=== PATIENT | female | born 1990 | race Caucasian/White ===

== ENCOUNTER 2018-03-06 08:26 | Inpatient (IN) ==
[2018-03-06] MEDS ORDERED: Naloxone 0.4 MG/ML INJ IVP PRN (08:41)
[2018-03-06] MEDS ORDERED: Famotidine 20 MG/2 ML VIAL IVP PRN (08:41)
[2018-03-06] MEDS ORDERED: EPHEDrine 50 MG/ML VIAL IVP PRN (08:44)
[2018-03-06] MEDS ORDERED: Epidural Premix (fent/bupiv) 110 ML EP SCH (08:45)
[2018-03-06 09:41] LABS: Basophils % 0.2 %; Eosinophils # 0.1 K/mcL (0.0-0.6); Eosinophils % 0.5 %; Hematocrit 31.9 % (35.3-44.9); Hemoglobin 10.8 g/dL (11.5-15.4); Immature Granulocytes % 0.7 % (0-4); Lymphocytes # 2.5 K/mcL (0.6-4.6); Lymphocytes % 18.6 %; Mean Corpuscular HGB Conc 33.9 g/dL (31.6-35.5); Mean Corpuscular Hemoglobin 27.8 pg (28.0-33.3); Mean Corpuscular Volume 82.2 fL (83.0-100.0); Monocytes # 0.7 K/mcL (0.0-1.3); Monocytes % 5.6 %; Neutrophils # 9.9 K/mcL (1.6-8.9); Platelet Count 340 K/mcL (140-400); Red Blood Count 3.88 M/mcL (3.82-4.97); Red Cell Distribution Width 13.9 % (11.5-14.5); Segmented Neutrophils % 74.4 %
[2018-03-06 09:55] LABS: Amphetamine Screen,Urine Negative ng/mL (Cutoff=1000); Barbiturate Screen,Urine Negative ng/mL (Cutoff=200); Benzodiazepines Screen,Urine Negative ng/mL (Cutoff=200); Cannabinoid Screen,Urine Negative ng/mL (Cutoff = 50); Cocaine Screen,Urine Negative ng/mL (Cutoff= 300); Opiate Screen,Urine Negative ng/mL (Cutoff=300); Phencyclidine Screen,Urine Negative ng/mL (Cutoff=25)
[2018-03-06] MEDS: Ringers Solution, Lactated 1,000 ML IVC SCH ×2 (10:11→18:05)
[2018-03-06] MEDS ORDERED: miSOPROStol 25 MCG TABLET PO PRN (10:43)
--- NOTE | 2018-03-06 11:20 | OB/GYN History & Physical ---
Date of Encounter: 03/06/18 Time of Encounter: 10:57 Assessment and Plan (1) 40 weeks gestation of Current visit: Yes Status: Acute (2) Intrauterine Current visit: Yes Status: Acute Admit to labor and delivery for induction of labor 50 g Cytotec by mouth Labs-CBC and clot to hold Pain management plan is likely epidural Continuous electronic monitoring Anticipate vaginal delivery Dr. Calvillo is OB semiconductor bonder and is available as needed (3) Intact amniotic membranes Current visit: Yes Status: Acute Qualifiers: Trimester: third trimester Qualified Code(s): Z34.93 - Encounter for supervision of normal , unspecified, third trimester History of Present Illness Chief complaint: low VANIA HPI: Ms. Martins is a 27 year old female at 40 weeks 0 days gestation with an estimated date of of 03/06/18 dated by LMP. She presents for induction from the office today status post BPP reading 6/8 and VANIA of 4 with maximum pocket of 2.2 cm. She endorses good movement and denies leakage of fluid, vaginal bleeding, contractions. She has been seen by the midwives throughout her . This has been uncomplicated. records are available electronically and have been reviewed. Labs: O+ GBS negative Hep B negative HIV negative T. Palladium negative GC/CL negative Rubella immune Varicella immune Past Med Surg Social Fam HX - Past Medical History Medical history: no medical history Psychiatric history: no psych history - Past Surgical History Surgical History: appendectomy Additional surgical history: wisdom teeth. d&e - Social History Smoking Status: Never smoker Alcohol use: none Drug use: none - Family History Mother Adopted: No Living Status: Still Living Hx Family Cardiac Disorders: Yes (htn) Hx Family Cancer: Yes Hx Family Endocrine Disorder: Yes (hypothyroid) Obstetrical History - Pregnancies : 2 Para: 0 Term: 0 : 0 Ab's: 1 Livin Medications and Allergies Vit Calc,Iron,Folic [ Vitamins] 1 tab PO DAILY 03/06/18 [ History] 3 Allergy/AdvReac Type Severity Reaction Status Date / Time No Known Allergies Allergy Verified 03/06/18 09:05 Review of System OB All systems PM: reviewed and no additional remarkable complaints except as stated Exam - Constitutional Constitutional: well developed, well nourished, no acute distress, average body habitus, obese - HEENT HEENT: PERRL, Normocephaly, Mucus Membranes Moist - Neck Neck exam: full ROM - Lungs Respiratory exam: CTAB - Cardiovascular Cardiovascular exam: RRR, +S1, +S2 - Breasts Breast: bilateral: normal - Abdomen Abdomen: Present: bowel sounds normal, gravid, non tender - Extremities Extremities exam: normal capillary refill, normal inspection, pedal edema, radial pulses palpable and symmetrical - Vulva Vulva: bilateral: normal - Vagina Vagina: Present: normal moisture - Cervix Dilation: 1 Effacement: 50 Station: -2 - Uterus Uterus exam: Present: normal size, normal contour - Adnexa Adnexa: bilateral: normal - Anus/Rectum Anus/Rectum: Present: normal perianal skin Results Result Diagrams: 03/06/18 09:15 Abnormal lab results WBC 13.3 K/mcL (4.3-11.1) H 03/06/18 09:15 Hgb 10.8 g/dL (11.5-15.4) L 03/06/18 09:15 Hct 31.9 % (35.3-44.9) L 03/06/18 09:15 MCV 82.2 fL (83.0-100.0) L 03/06/18 09:15 MCH 27.8 pg (28.0-33.3) L 03/06/18 09:15 Neutrophils # 9.9 K/mcL (1.6-8.9) H 03/06/18 09:15 All other labs normal. - VTE Reasons for not Prescribing Prophylaxis: Treatment not Indicated - Low risk for VTE
--- NOTE | 2018-03-06 15:54 | Anesthesia Evaluation PreOp ---
Date of Encounter: 03/06/18 Time of Encounter: 15:53 - Past History Planned Operation: DENNIS Cardiac History: Denies any Significant Hx Pulmonary History: Denies Any Significant HX GROCERY SPECIALIST History: Denies Any Significant HX Other Medical History: Denies Any Significant HX Anesthesia History: No Prior Anesthetic Complications, Past Anesthesia : Yes Alcohol Use: none Drug use: none Medications and Allergies Vit Calc,Iron,Folic [ Vitamins] 1 tab PO DAILY 03/06/18 [ History] 3 Allergy/AdvReac Type Severity Reaction Status Date / Time No Known Allergies Allergy Verified 03/06/18 09:05 - Meds/Allergy Pre-op Review Medications Reviewed: Yes Allergies Reviewed: Yes Beta Blockers on Current Med List: No Anesthesia Results - Labs 03/06/18 09:15 Anesthesia Exam O2 Sat Height 1.68 m Weight 113.217 kg NPO (# of Hours): 4 Pain Scale: 2 Pain Scale Used: Numeric (1 - 10) - HEENT Pupil (Motor): Pupils equal Mallampati: II Teeth: Normal Oral Opening: Greater than 3 - GROCERY SPECIALIST LOC: Oriented GROCERY SPECIALIST Motor: Normal RUE, Normal LUE, Normal RLE, Normal LLE, Normal Face GROCERY SPECIALIST Sensory: Normal: RUE, LUE, RLE, LLE, Face - Cardiac Rhythm: Regular Murmur: None JVD: No Carotid Bruit: No - Pulmonary Breath Sounds: bilateral Clear Respiratory Effort: Symmetrical Anesthesia Assess/Plan ASA Score: 3 (BMI 40) Modified [place] Scale for Level of Consciousness: Cooperative, oriented, and tranquil Anesthetic Plan: General (plan b), Regional (plan a) Autologous Blood: Yes Monitoring Plan: Standard Monitors Recovery Plan: PACU
[2018-03-06] MEDS ORDERED: *HR* Nalbuphine 10 MG/ML AMPUL IV PRN (18:14)
[2018-03-06] MEDS: Ondansetron 4 MG/2 ML VIAL IVP PRN (18:23)
[2018-03-06] MEDS ORDERED: Lidocaine -MPF 1% 5 ML AMPUL ONE (19:31)
--- NOTE | 2018-03-06 20:00 | Anesthesia Procedures ---
Date of Encounter: 03/06/18 Time of Encounter: 19:58 Procedures: Anesthesia - Epidural/Spinal Patient ID/Chart reviewed: Yes Patient examined: Yes OB Eval: Gestational age: 40 OB Eval: : 2 OB Eval: Hx Para: 0 OB Eval: Dilated at (cm): 2 OB Eval: Contractions: Non-stressed pattern Consent Obtained: Yes Supplemental Oxygen: None/Room Air Site Prep: Aseptic Technique, Sterile prep and drape, Povidone-Iodine 1% Patient position: upright Local Anesthetic: Lidocaine 1% Amount of Local Anesthetic used: 3 Touhy Needle Gauge: 18 Touhy Needle Depth (cm): 10 Catheter Depth at Skin (cm): 20 Test Dose (1.5% Lido + Epi): Volume given (mls): 5 Test Dose Result: Negative Loading Dose: Other: 10mls of epidural pharm bag premix solution Loading Dose Administered: Thru Catheter Infusion Med: 0.125% Bupivacaine w/ 2 mcg/ml Fentanyl Infusion Rate (mls/hr): 16 ([id number]) Catheter Secured in Place: Tegaderm, Tape Interspace Used: L3-L4 Loss of Resistance (TEREZA): Yes Blood: No CSF: No Paresthesia: No Procedure: pt tolerated procedure well. no complications. vss. fhr stable. see nursing notes for complete vitals.
[2018-03-06] MEDS: Oxytocin 20 units/ LR 1000 mL 20 UNIT/1,000 ML BAG IVC SCH (21:29)
[2018-03-06] MEDS ORDERED: *HR* Labetalol 20 MG/4 ML SYRINGE IVP ONE (22:05)
--- NOTE | 2018-03-07 00:18 | OB Labor Progress Note ---
Date of Encounter: 03/07/18 Time of Encounter: 00:17 Labor Progress Note - Subjective Subjective: Patient comfortable with epidural - Cervix Cervix: 5/100/0 - Heart Tones Heart Tones: FHR category I - [place]: Contractions every 2 minutes and palpate moderate - Interventions Interventions: SVE IUPC - Plan Plan: Continue active management Frequent position changes with peanut ball Anticipate vaginal delivery
[2018-03-07] MEDS ORDERED: *HR* FentaNYL (PF) 100 MCG/2 ML VIAL ONE (00:53)
--- NOTE | 2018-03-07 01:07 | Anesthesia Progress Note ---
Date of Encounter: 03/07/18 Time of Encounter: 01:06 Anesthesia Note - Note Note: 03/07/18 01:06 called for increased pain during contractions. pt assessed. bolus given of 1% ropivacaine 5ml and 100mcg fentanyl. pt tolerated well. vss. fhr stable. rate increased to 20ml/hr.
[2018-03-07] MEDS: Ondansetron 4 MG/2 ML VIAL IVP PRN (06:42)
[2018-03-07] MEDS ORDERED: *HR* Ropivacaine/PF 0.5% 20 ML VIAL ONE (07:18)
--- NOTE | 2018-03-07 07:53 | OB Labor Progress Note ---
Date of Encounter: 03/07/18 Time of Encounter: 07:51 Labor Progress Note - Subjective Subjective: Patient requesting bolus for epidural. - Cervix Cervix: 9.5/100/+2 - Heart Tones Heart Tones: FHR Category I - [place]: IUPC ctx q 2-3 - Interventions Interventions: Plaement to deep left lateral. - Plan Plan: Continue active management Deep left lateral x 1 hour Anticipate
--- NOTE | 2018-03-07 09:33 | OB/GYN Procedure Note ---
Delivery - Delivery Date: 03/07/18 Provider: Raya Rothman Intrapartum events: none Delivery induction: oxytocin, misoprostol Delivery monitor: external FHT, internal uterine Anesthesia: epidural Quantitated Blood Loss: 200 - Infant (s) A Delivery Date: 03/07/18 Delivery Time: 08:57 Presentation: vertex Position: [place] Route of delivery: Gender: Female Viability: Viable Pounds: 7 Ounces: 12 Weight Gram: 3520 kg at 1 minute: 8 at 5 mins: 9 Shoulder Dystocia: not encountered Specimens collected: cord blood Placenta: spontaneous, uterine exploration Cord: 3 umbilical vessels - Repair Episiotomy: none Laceration Description: Vaginal (1 degree repaired with 3-0 vicryl) - Complications Delivery complications: none - Disposition Mom disposition: stable in LDR [place] disposition: stable in LDR - Comments Comments: Called to LDR patient complete and pushing. Patient already in stirrups and prepped for vaginal delivery. Under maternal effort patient spontaneously delivered a viable female infant over a 1 degree vaginal laceration. No nuchal cord, shoulder dystocia or meconium was encountered. Infant was placed on maternal abdomen. Cord was clamped and cut after pulsations ceased. to kangaroo care. Cord blood was collected along with a six inch segment. The laceration was repaired with 3-0 vicryl. Placenta delivered spontaneously and intact. Pericare provided, all counts correct. Both Mother and infant stable in LDR for 2 hour recovery.
[2018-03-07] MEDS: Oxytocin 20 units/ LR 1000 mL 20 UNIT/1,000 ML BAG IVC SCH (10:25)
[2018-03-07] MEDS ORDERED: Lanolin 7 G OINT...G. TP PRN (10:55)
[2018-03-07] MEDS ORDERED: Benzocaine/Menthol 56 GM AEROSOL SPRAY TP PRN (10:55)
[2018-03-07] MEDS ORDERED: Oxytocin 20 units/ LR 1000 mL 20 UNIT/1,000 ML BAG IVC SCH (10:55)
[2018-03-07] MEDS ORDERED: Acetaminophen 325 MG TABLET PO PRN (10:55)
[2018-03-07] MEDS ORDERED: Measles/Mumps/Rubella Vacc 0.5 ML VIAL SQ PRN (10:55)
[2018-03-07] MEDS ORDERED: *HR* HYDROcodone/Acet 5/325 mg TABLET PO PRN (10:55)
[2018-03-07] MEDS: Ibuprofen 600 MG TABLET PO PRN ×2 (11:47→18:16)
[2018-03-08 08:22] VITALS: BP 106/71
[2018-03-08] MEDS ORDERED: Prenatal Vit/FA 1 EACH TABLET PO SCH (09:00)
[2018-03-08] MEDS: Ibuprofen 600 MG TABLET PO PRN (09:01)
--- NOTE | 2018-03-08 09:23 | Discharge Summary ---
Date of Encounter: 03/08/18 Time of Encounter: 09:21 - Discharge Diagnosis (1) Vaginal delivery Priority: Primary Status: Acute Comments: continue routine care discharge home today follow up with CNM in 4-6 weeks (2) Breast feeding status of mother Priority: Secondary Status: Acute Comments: support prn - Discharge Medications Prescriptions: Ibuprofen [Motrin] 600 mg PO Q6HR PRN #60 tablet PRN Reason: Cramping Home Medications: Vit Calc,Iron,Folic [ Vitamins] 1 tab PO DAILY 03/06/18 [ History] Docusate [Colace] 100 mg PO BID capsule 03/08/18 [Rx] Ibuprofen [Motrin] 600 mg PO Q6HR PRN #60 tablet 03/08/18 [Rx] Lanolin [Lansinoh] 1 appl TP TID PRN oint...g. 03/08/18 [Rx] Allergies/Adverse Reactions: 3 Allergy/AdvReac Type Severity Reaction Status Date / Time No Known Allergies Allergy Verified 03/06/18 09:05 Data Procedures and tests throughout hospitalization: Laboratory Tests 03/06/18 03/06/18 09:15 09:15 WBC 13.3 H RBC 3.88 Hgb 10.8 L Hct 31.9 L MCV 82.2 L MCH 27.8 L MCHC 33.9 RDW 13.9 Plt Count 340 MPV 10.0 Immature Gran % 0.7 Seg Neutrophils % 74.4 Lymphocytes % 18.6 Monocytes % 5.6 Eosinophils % 0.5 Basophils % 0.2 Neutrophils # 9.9 H Lymphocytes # 2.5 Monocytes # 0.7 Eosinophils # 0.1 Basophils # 0.0 Urine Opiates Screen Negative Ur Barbiturates Screen Negative Ur Phencyclidine Scrn Negative Ur Amphetamines Screen Negative U Benzodiazepines Scrn Negative Urine Cocaine Screen Negative U Marijuana (THC) Screen Negative Ur Drug Screen Interp See Below Date of admission: 03/06/18 08:26 Primary care physician: Darrick Franklin DO Consults: 03/07/18 10:55 Consult to Forestry Faculty Member [CONS] Routine Comment: Vaginal delivery, consult needed Discharging clinician: Raya Rothman Anticipated date of discharge: 03/08/18 - Patient Status Disposition: Home, Self-Care Condition: Good Functional capacity at discharge: independent ambulation - Discharge Instructions Follow Up With: Darrick Franklin DO [Primary Care Provider] - Raya Rothman CNM [Non-Partnered Physician] - - Diet and Activity Activity: increase activity as tolerated Diet: regular diet Hospital Course Reason for admission: induction of labor Delivery: Episiotomy: none Laceration: other (vaginal 1st degree) Other procedures: none complications: none Discharge diagnosis: IUP at term delivered baby: female (breast feeding) Time Attestation: Total time spent providing and/or coordinating discharge services: Time Spent: Less than 30 minutes Exam - Constitutional Vitals: Temp Pulse Resp BP Pulse Ox 98.2 F 114 14 106/71 96 03/08/18 08:20 03/08/18 08:20 03/08/18 08:20 03/08/18 08:20 03/08/18 08:20 General appearance IM: A&O X 3, pleasant, answers questions appropriately - Respiratory Respiratory exam: Present: CTAB - Cardiovascular Cardiovascular exam IM: Present: RRR, +S1, +S2 - GI/Abdominal GI/Abdominal exam IM: normal bowel sounds - Uterine Tone: Firm Uterus Position: 1 Finger Below Umbilicus, Midline - Extremities Exam Extremities exam IM: Present: full ROM, normal capillary refill, normal inspection - Neurological Exam Neurological exam: alert, oriented X3, reflexes normal
== END 2018-03-08 12:29 | disposition home or self-care (01) | DRG 775 ==
LOC: 1NENULAB 08:26 → 1NENUOBS 03-07 11:39
PROVIDERS: ADMIT Advanced Practice Midwife; ATTEND Advanced Practice Midwife